=== PATIENT | female | born 1945 | race Caucasian/White ===

== ENCOUNTER → 2017-02-28 | Outpatient (CLI) | payer MEDICARE, BC ==
[~2017-02-28] MED LIST: ADEMPAS2.5 MG PO; ANIMAL SHAPES1 EAC2 PO; ASPIRIN EC81 M1 PO; BACTRIM DS TABL1 TA1 PO; CLARITIN10 M2 PO; COUMADIN PO; DIAZEPAM PO; DULCOLAX5 M1 PO; FLONASE 0.05% N16 GM; K-DUR10 MEQ PO; LASIX PO; MOBIC PO; NEURONTIN100 MG PO; OCUVITE EYE +1 EACH PO; OPSUMIT10 MG PO; PRADAXA150 MG PO; PREVACID PO; RYTHMOL PO; TIKOSYN250 MCG PO; TOPROL XL PO
== END | disposition home or self-care (01) ==
LOC: CSSDAY 13:12
DX: D50.9 Iron deficiency anemia, unspecified (principal); K90.9 Intestinal malabsorption, unspecified; Z79.899 Other long term (current) drug therapy
CPT/HCPCS: 96374; 96375; J2405; Q0138